=== PATIENT | female | born 1975 | race Two or more races ===

== ENCOUNTER 2016-11-03 21:35 | Outpatient (CLI) | payer MEDICARE, MEDICAID | END 2016-11-03 23:59 | disposition critical access hospital (66) | DX: R69 Illness, unspecified (principal) | CPT/HCPCS: A0425; A0429 ==

== ENCOUNTER 2016-11-03 21:50 | Emergency (ER) | payer MEDICARE, MEDICAID | END 2016-11-03 23:03 | disposition home or self-care (01) | DX: F15.10 Other stimulant abuse, uncomplicated (principal); Z59.0 Homelessness; M79.7 Fibromyalgia; F17.200 Nicotine dependence, unspecified, uncomplicated; R03.0 Elevated blood-pressure reading, without diagnosis of hypertension | CPT/HCPCS: 36415; 80053; 80306; 81003; 81025; 83690; 85025; 99283; G0480 ==